=== PATIENT | male | born 1950 | race Caucasian/White ===

== ENCOUNTER → 2020-12-02 09:16 | Outpatient (CLI) | payer MEDICARE, OTHER, SELFPAY ==
[2020-12-02 19:02] LABS: Add Manual Diff / Slide Review NO; Basophils Absolute Auto 0 /uL (0-100); Basophils Percent Auto 0.4 % (0-2); Eosinophils Absolute Auto 200 /uL (0-450); Eosinophils Percent Auto 3.1 % (2-4); Hemoglobin 15.5 g/dL (13.5-17.5); Lymphocytes Absolute Auto 1100 /uL (1100-4500); Lymphocytes Percent Auto 20.7 % (25-40); Mean Corpuscular HGB Conc 32.9 % (30-36); Mean Corpuscular Hemoglobin 29.8 PG (26-34); Mean Corpuscular Volume 90.5 fL (80-100); Monocytes Absolute Auto 500 /uL (0-900); Monocytes Percent Auto 9.5 % (3-14); Neutrophils Absolute Auto 3400 /uL (1500-7000); Neutrophils Percent Auto 66.3 % (50-75); Platelet Count 214 X10^3/uL (150-400); Red Cell Distribution Width 14.3 % (11.6-14.8); White Blood Cell Count 5.1 X10^3/uL (4.5-11.0)
[2020-12-02 19:14] LABS: Alanine Aminotransferase 25 IU/L (<50); Albumin Globulin Ratio 1.5 (1.0-2.8); Alkaline Phosphatase 57 U/L (38-126); Aspartate Aminotransferase 30 IU/L (17-59); Bilirubin Total 0.4 mg/dL (0.2-1.3); Blood Urea Nitrogen 12 mg/dL (9-20); Calcium 9.2 mg/dL (8.4-10.2); Carbon Dioxide 30 mmol/L (22-32); Chloride 103 mmol/L (98-107); Estimated Glomerular Filt Rate > 60.0 mL/min (>60); Globulin 2.6 g/dL (1.7-4.1); Glucose 102 mg/dL (80-110); HEMOLYSIS < 15 (0-50); Potassium 4.4 mmol/L (3.4-5.1); Sodium 140 mmol/L (137-145); Total Protein 6.6 g/dL (6.3-8.2)
[2020-12-02 19:29] LABS: Free T3, Triiodothyronine Free 3.46 pg/mL (2.77-5.27); Free T4, Direct Thyroxine 1.71 ng/dL (0.78-2.19)
[2020-12-02 23:51] LABS: Thyroid Stimulating Hormone 0.149 uIU/mL (0.47-4.68)
== END ==
PROVIDERS: PCP Family Medicine; Visit Provider Family Medicine
DX: E89.0 Postprocedural hypothyroidism (principal); M25.50 Pain in unspecified joint; N52.9 Male erectile dysfunction, unspecified
CPT/HCPCS: 80053; 84439; 84443; 84481; 85025

== ENCOUNTER → 2021-02-02 08:58 | Outpatient (CLI) | payer MEDICARE, OTHER, SELFPAY ==
[2021-02-02 20:28] LABS: TSH w/ Reflex to FT4 2.89 uIU/mL (0.47-4.68)
== END ==
PROVIDERS: PCP Family Medicine; Visit Provider Family Medicine
DX: E89.0 Postprocedural hypothyroidism (principal)
CPT/HCPCS: 84443

== ENCOUNTER → 2021-08-01 12:43 | Outpatient (CLI) | payer MEDICARE, OTHER, SELFPAY ==
[2021-08-01 19:56] LABS: TSH w/ Reflex to FT4 2.79 uIU/mL (0.47-4.68)
== END ==
PROVIDERS: PCP Family Medicine; Referring Provider Family Medicine; Visit Provider Family Medicine
DX: E89.0 Postprocedural hypothyroidism (principal)
CPT/HCPCS: 84443

== ENCOUNTER 2021-10-23 14:01 | Emergency (ER) | payer MEDICARE, OTHER, SELFPAY ==
[2021-10-23] VITALS (7 sets, daily range): BP systolic 122–180; BP diastolic 72–99; PULSE 61–70; RESP 15–22; TEMP 36.6; O2SAT 95–97; BMI 25.7
--- NOTE | 2021-10-23 14:20 | DI.RAD.S_ITS ---
PROCEDURE: XR CHEST 1V INDICATIONS: altered mental status TECHNIQUE: One view of the chest was acquired. COMPARISON: None. FINDINGS: Surgical changes and devices: None. Lungs and pleura: Lungs are clear. No pleural effusions or pneumothorax. Mediastinum: Mediastinal contours appear normal. Heart size is normal. Bones and chest wall: No suspicious bony lesions. Overlying soft tissues appear unremarkable. IMPRESSION: No acute cardiopulmonary disease. Dictated by: Meghann Alexandre M.D. on 10/23/2021 at 14:37 Approved by: Meghann Alexandre M.D. on 10/23/2021 at 14:39
--- NOTE | 2021-10-23 14:21 | DI.CT.S_ITS ---
PROCEDURE: CT HEAD/BRAIN WO CON INDICATIONS: altered mental status TECHNIQUE: Noncontrast 4.5 mm thick angled axial sections acquired from the foramen magnum to the vertex, with coronal and sagittal reformats. For radiation dose reduction, the following was used: automated exposure control, adjustment of mA and/or kV according to patient size. COMPARISON: None. FINDINGS: Image quality: Excellent. CSF spaces: Basal cisterns are patent. No extra-axial fluid collections. The ventricles are symmetric in size and shape. Brain: No intracranial bleeds or masses. There is cerebral volume loss for age, with resultant ventricular and sulcal prominence. There are periventricular and deep white matter chronic small vessel ischemic changes. There is intracranial internal carotid artery atherosclerosis. Skull and face: Calvarium and visualized facial bones appear intact, without suspicious lesions. Sinuses: Visualized sinuses and mastoids are clear. IMPRESSION: 1. No acute intracranial abnormalities. Dictated by: Meghann Alexandre M.D. on 10/23/2021 at 14:39 Approved by: Meghann Alexandre M.D. on 10/23/2021 at 14:44
[2021-10-23 14:31] LABS: Add Manual Diff / Slide Review NO; Basophils Absolute Auto 0 /uL (0-100); Basophils Percent Auto 0.5 % (0-2); Eosinophils Absolute Auto 100 /uL (0-450); Eosinophils Percent Auto 1.4 % (2-4); Hematocrit 47.4 % (41-53); Hemoglobin 15.9 g/dL (13.5-17.5); Lymphocytes Absolute Auto 1200 /uL (1100-4500); Mean Corpuscular HGB Conc 33.5 % (30-36); Mean Corpuscular Hemoglobin 30.2 PG (26-34); Mean Corpuscular Volume 90.1 fL (80-100); Monocytes Absolute Auto 600 /uL (0-900); Monocytes Percent Auto 7.5 % (3-14); Neutrophils Absolute Auto 5700 /uL (1500-7000); Neutrophils Percent Auto 74.6 % (50-75); Platelet Count 228 X10^3/uL (150-400); Red Blood Cell Count 5.27 X10^6/uL (4.5-5.9); Red Cell Distribution Width 14.5 % (11.6-14.8); White Blood Cell Count 7.7 X10^3/uL (4.5-11.0)
--- NOTE | 2021-10-23 14:45 | ED_ITS ---
HPI - General Adult General Chief complaint: Altered Mental Status Stated complaint: Confussion,Nausea,Headache, Sent from [facility] Time Seen by Provider: 10/23/21 14:29 Source: patient and family Mode of arrival: Ambulatory Limitations: no limitations History of Present Illness HPI narrative: Patient is a 71-year-old male. Has a history of hypothyroid. Is on medication for this. His last dose adjustment was approximately 6 months ago. He is here for evaluation for headaches he has been having also some confusion and word- finding issues. All of his symptoms seem to have started approximately 48 hours ago. He was eating at a restaurant to the timing. He started having some abdominal discomfort. Generally not feeling very well. He tried to use the bathroom at the restaurant however has not had any diarrhea nor constipation or nausea and vomiting. No fevers. States since that time his also developed a headache on the right side just above his right eye. He describes it as sharp. He is currently having the headache but it certainly is not as bad as what has been in the past. Does seem to get worse when he bends over. There has been times in the past 48 hours where he has been symptom-free. He also states in the past 48 hours there been times where he has had issues expressing when he is trying to say. He states he yesterday his son told him that he did not know what he was trying to say. The patient admitted that he was having word-finding issues. He knew what he wanted to say but just could not get the words out. That apparently happened again today. He also states that he has had some shaking in his right hand and difficulty with writing things down and remembering things but this is been going on for the past 6 months. No chest pain. No shortness of breath. No vision changes. He was at the eye doctor just prior to this emergency department visit. This was a scheduled visit. He did have dilation of his eyes. He was told that he had some cataracts although no other abnormal findings. He did discuss his headaches that he was having with the eye doctor and the eye doctor told him that his headaches were not related to his eyes. No sinus congestion. He does have ringing in his ears but this is not new. No sore throat. No balance issues. No weakness in his upper lower extremities. No skin rashes. No urinary symptoms. No trauma. Related Data Home Medications Medication Instructions Recorded Confirmed ciclopirox 8 % topical solution 1 applic TOPICAL BEDTIME 11/29/20 12/20/20 sildenafil (pulm.hypertension) 20 20 mg PO .PRN tab 11/29/20 12/20/20 mg tablet triamcinolone acetonide 0.05 % 1 applic TOPICAL BID 11/29/20 12/20/20 topical ointment levothyroxine 175 mcg tablet mcg 10/23/21 Previous Rx's Medication Instructions Recorded levothyroxine 175 mcg tablet 175 mcg PO DAILY #90 tab 12/20/20 (Levoxyl) atorvastatin 40 mg tablet (Lipitor) 40 mg PO DAILY #30 tab 10/23/21 clopidogrel 75 mg tablet (Plavix) 75 mg PO DAILY 21 Days #21 tab 10/23/21 Allergies Allergy/AdvReac Type Severity Reaction Status Date / Time No Known Allergies Allergy Uncoded 10/23/21 14:28 Review of Systems Review of Systems ROS Unobtainable: All systems reviewed & are unremarkable except as noted in HPI and below Patient History Medical History Chronic back pain Fever Fractures Hearing loss (~2012) Hepatitis (~1972) Measles (~1953) Mumps Wears glasses Surgical History (Updated 02/01/21 @ 20:57 by Elba Lynn) Anesthesia History of nasal surgery History of thyroidectomy (2007) Family History (Updated 02/01/21 @ 21:00 by Elba Lynn) Father History of heart disease Prostate disease Mother No problems noted. Sister Arthritis Social History Smoking Status: Never smoker Smoking Status: Never smoker alcohol intake frequency: 0-2 drinks per day Substance Use Type: does not use Exam Initial Vital Signs Initial Vital Signs: Vital Signs Temperature 98 F 10/23/21 14:25 Pulse Rate 70 10/23/21 14:25 Respiratory Rate 17 10/23/21 14:25 Blood Pressure 180/99 H 10/23/21 14:25 Pulse Oximetry 97 10/23/21 14:25 Const General: cooperative, healthy appearing, comfortable, well developed, well groomed, No acute distress and No anxious HENMT Head: normal to inspection and normocephalic Ears: TM's normal bilaterally Face and sinus: normal facial exam Mouth: oral mucosae normal Teeth and gingiva: dentition normal Throat: posterior oropharynx normal Eyes EOM: EOM intact bilaterally Other: Hives are dilated at 8 mm and are minimally reactive but he did have dilation of his eyes at the eye doctor just prior to visit. Chest Chest: normal inspection of the chest Resp Effort & Inspection: normal respiratory effort Auscultation: clear to auscultation bilaterally Cardio Rate: regular rate Rhythm: regular rhythm GI Inspection: normal to inspection Palpation: soft Skin General: no rashes or lesions noted Neuro General: patient alert, patient awake, patient oriented x3, moves all extremities and no meningeal signs Cranial Nerves: CN's II-XI intact bilaterally Cognition: normal cognition Gait: normal gait Motor: muscle tone normal throughout Sensory Exam: no sensory deficits noted Other: Patient does have normal speech. But is obviously having some difficulty expressing what he is saying. Extrem General: normal to inspection and capillary refill normal Psych Appearance: grossly normal and well kempt Course Orders Ordered: ED Orders 10/23/21 14:20 XR chest 1V Stat Acetaminophen Stat Ammonia (NH3) Stat COVID19 -Nasal swab/Pre-Proc Stat Complete Blood Count AUTO DIFF Stat Comprehensive Metabolic Panel Stat Ethanol (ETOH) Stat Lactate (Lactic Acid) Stat Lipase Stat Procalcitonin Stat Salicylate Stat Thyroid Stimulating Hormone Stat Troponin & CK Cardiac Panel Stat EKG-12 Lead Stat 10/23/21 14:21 CT head/brain wo con Stat 10/23/21 14:53 MR stroke Stat Blood Culture Stat 10/23/21 15:00 Urine Drug Screen, Rapid Stat Discontinued Medications Aspirin (Aspirin Ec 81 Mg Tablet) 81 mg PO NOW ONE Stop: 10/23/21 17:00 Last Admin: 10/23/21 17:17 Dose: 81 mg Documented by: LISSETTE Atorvastatin Calcium (Atorvastatin 20 Mg Tablet) 40 mg PO NOW ONE Stop: 10/23/21 17:00 Last Admin: 10/23/21 17:17 Dose: 40 mg Documented by: LISSETTE Clopidogrel Bisulfate (Clopidogrel 75 Mg Tablet) 300 mg PO NOW ONE Stop: 10/23/21 17:00 Last Admin: 10/23/21 17:17 Dose: 300 mg Documented by: LISSETTE Sodium Chloride (Normal Saline 0.9%) 1,000 mls @ 150 mls/hr IV CONT RANI Last Admin: 10/23/21 16:13 Dose: 150 mls/hr Documented by: LISSETTE Vital Signs Vital signs: Vital Signs - 8 hr 10/23/21 14:25 10/23/21 16:00 10/23/21 16:30 Temperature 98 F Pulse Rate 70 63 66 Respiratory Rate 17 16 22 Blood Pressure 180/99 H 124/77 122/72 Pulse Oximetry 97 96 95 10/23/21 16:56 10/23/21 17:00 10/23/21 17:30 Temperature Pulse Rate 64 62 61 Respiratory Rate 22 15 19 Blood Pressure 129/78 133/72 Pulse Oximetry 96 97 96 10/23/21 17:38 Temperature Pulse Rate 64 Respiratory Rate 20 Blood Pressure 155/80 H Pulse Oximetry 95 Medical Decision Making Lab Data Lab results reviewed: Yes I reviewed the patient's lab results. Result diagrams: 10/23/21 14:20 10/23/21 14:20 Labs: Lab Results 10/23/21 10/23/21 10/23/21 Range/Units 14:20 14:20 14:20 WBC 7.7 (4.5-11.0) X10^3/uL RBC 5.27 (4.5-5.9) X10^6/uL Hgb 15.9 (13.5-17.5) g/dL Hct 47.4 (41-53) % MCV 90.1 (80-100) fL MCH 30.2 (26-34) PG MCHC 33.5 (30-36) % RDW 14.5 (11.6-14.8) % Plt Count 228 (150-400) X10^3/uL Neut % (Auto) 74.6 (50-75) % Lymph % (Auto) 16.0 L (25-40) % [place] % (Auto) 7.5 (3-14) % Eos % (Auto) 1.4 L (2-4) % Baso % (Auto) 0.5 (0-2) % Neut # (Auto) 5700 (6984-1917) /uL Lymph # (Auto) 1200 (6595-4443) /uL [place] # (Auto) 600 (0-900) /uL Eos # (Auto) 100 (0-450) /uL Baso # (Auto) 0 (0-100) /uL Sodium 139 (137-145) mmol/L Potassium 3.8 (3.4-5.1) mmol/L Chloride 103 (98-107) mmol/L Carbon Dioxide 28 (22-32) mmol/L BUN 13 (9-20) mg/dL Creatinine 0.96 (0.66-1.25) mg/dL Estimated GFR > 60.0 (>60) mL/min BUN/Creatinine Ratio 13.5 (6-22) Glucose 125 H (80-110) mg/dL Lactate (0.7-2.1) mmol/L Calcium 8.9 (8.4-10.2) mg/dL Total Bilirubin 0.7 (0.2-1.3) mg/dL AST 39 (17-59) IU/L ALT 25 (<50) IU/L Alkaline Phosphatase 59 (38-126) U/L Ammonia < 9 L (9-30) umol/L Total Creatine Kinase (55-170) U/L CK-MB (CK-2) (<2.37) ng/mL CK-MB (CK-2) Rel Index (1.5-5.0) % Troponin I (0.01-0.034) ng/mL Total Protein 7.6 (6.3-8.2) g/dL Albumin 4.6 (3.5-5.0) g/dL Globulin 3.0 (1.7-4.1) g/dL Albumin/Globulin Ratio 1.5 (1.0-2.8) Lipase (23-300) U/L Procalcitonin (<0.5) ng/mL TSH (0.47-4.68) uIU/mL Salicylates (<20) mg/dL U Opiates 300ng/mL cut (Negative) Ur Oxycodone Screen (Negative) Urine Methadone Screen (Negative) Acetaminophen (10-30) ug/mL Ur Barbiturates Screen (Negative) U Tricyclic Antidepress (Negative) Ur Phencyclidine Scrn (Negative) Ur Amphetamines Screen (Negative) U Methamphetamines Scrn (Negative) Ur MDMA Scrn (Ecstasy) (Negative) U Benzodiazepines Scrn (Negative) Urine Cocaine Screen (Negative) U Marijuana (THC) Screen (Negative) Ethyl Alcohol ( - 10) mg/dL SARS-CoV-2 (PCR) (Negative) 03/10/23/21 10/23/21 Range/Units 14:20 14:20 14:20 WBC (4.5-11.0) X10^3/uL RBC (4.5-5.9) X10^6/uL Hgb (13.5-17.5) g/dL Hct (41-53) % MCV (80-100) fL MCH (26-34) PG MCHC (30-36) % RDW (11.6-14.8) % Plt Count (150-400) X10^3/uL Neut % (Auto) (50-75) % Lymph % (Auto) (25-40) % [place] % (Auto) (3-14) % Eos % (Auto) (2-4) % Baso % (Auto) (0-2) % Neut # (Auto) (9170-2936) /uL Lymph # (Auto) (9890-3391) /uL [place] # (Auto) (0-900) /uL Eos # (Auto) (0-450) /uL Baso # (Auto) (0-100) /uL Sodium (137-145) mmol/L Potassium (3.4-5.1) mmol/L Chloride (98-107) mmol/L Carbon Dioxide (22-32) mmol/L BUN (9-20) mg/dL Creatinine (0.66-1.25) mg/dL Estimated GFR (>60) mL/min BUN/Creatinine Ratio (6-22) Glucose (80-110) mg/dL Lactate 0.8 (0.7-2.1) mmol/L Calcium (8.4-10.2) mg/dL Total Bilirubin (0.2-1.3) mg/dL AST (17-59) IU/L ALT (<50) IU/L Alkaline Phosphatase (38-126) U/L Ammonia (9-30) umol/L Total Creatine Kinase 351 H (55-170) U/L CK-MB (CK-2) 2.88 H (<2.37) ng/mL CK-MB (CK-2) Rel Index 0.8 L (1.5-5.0) % Troponin I < 0.012 (0.01-0.034) ng/mL Total Protein (6.3-8.2) g/dL Albumin (3.5-5.0) g/dL Globulin (1.7-4.1) g/dL Albumin/Globulin Ratio (1.0-2.8) Lipase (23-300) U/L Procalcitonin (<0.5) ng/mL TSH (0.47-4.68) uIU/mL Salicylates (<20) mg/dL U Opiates 300ng/mL cut (Negative) Ur Oxycodone Screen (Negative) Urine Methadone Screen (Negative) Acetaminophen (10-30) ug/mL Ur Barbiturates Screen (Negative) U Tricyclic Antidepress (Negative) Ur Phencyclidine Scrn (Negative) Ur Amphetamines Screen (Negative) U Methamphetamines Scrn (Negative) Ur MDMA Scrn (Ecstasy) (Negative) U Benzodiazepines Scrn (Negative) Urine Cocaine Screen (Negative) U Marijuana (THC) Screen (Negative) Ethyl Alcohol ( - 10) mg/dL SARS-CoV-2 (PCR) Negative (Negative) 10/23/21 10/23/21 10/23/21 Range/Units 14:20 14:20 14:20 WBC (4.5-11.0) X10^3/uL RBC (4.5-5.9) X10^6/uL Hgb (13.5-17.5) g/dL Hct (41-53) % MCV (80-100) fL MCH (26-34) PG MCHC (30-36) % RDW (11.6-14.8) % Plt Count (150-400) X10^3/uL Neut % (Auto) (50-75) % Lymph % (Auto) (25-40) % [place] % (Auto) (3-14) % Eos % (Auto) (2-4) % Baso % (Auto) (0-2) % Neut # (Auto) (5986-0370) /uL Lymph # (Auto) (4383-4166) /uL [place] # (Auto) (0-900) /uL Eos # (Auto) (0-450) /uL Baso # (Auto) (0-100) /uL Sodium (137-145) mmol/L Potassium (3.4-5.1) mmol/L Chloride (98-107) mmol/L Carbon Dioxide (22-32) mmol/L BUN (9-20) mg/dL Creatinine (0.66-1.25) mg/dL Estimated GFR (>60) mL/min BUN/Creatinine Ratio (6-22) Glucose (80-110) mg/dL Lactate (0.7-2.1) mmol/L Calcium (8.4-10.2) mg/dL Total Bilirubin (0.2-1.3) mg/dL AST (17-59) IU/L ALT (<50) IU/L Alkaline Phosphatase (38-126) U/L Ammonia (9-30) umol/L Total Creatine Kinase (55-170) U/L CK-MB (CK-2) (<2.37) ng/mL CK-MB (CK-2) Rel Index (1.5-5.0) % Troponin I (0.01-0.034) ng/mL Total Protein (6.3-8.2) g/dL Albumin (3.5-5.0) g/dL Globulin (1.7-4.1) g/dL Albumin/Globulin Ratio (1.0-2.8) Lipase 65 (23-300) U/L Procalcitonin 0.03 (<0.5) ng/mL TSH 3.56 (0.47-4.68) uIU/mL Salicylates (<20) mg/dL U Opiates 300ng/mL cut (Negative) Ur Oxycodone Screen (Negative) Urine Methadone Screen (Negative) Acetaminophen (10-30) ug/mL Ur Barbiturates Screen (Negative) U Tricyclic Antidepress (Negative) Ur Phencyclidine Scrn (Negative) Ur Amphetamines Screen (Negative) U Methamphetamines Scrn (Negative) Ur MDMA Scrn (Ecstasy) (Negative) U Benzodiazepines Scrn (Negative) Urine Cocaine Screen (Negative) U Marijuana (THC) Screen (Negative) Ethyl Alcohol < 10 ( - 10) mg/dL SARS-CoV-2 (PCR) (Negative) 10/23/21 10/23/21 Range/Units 14:20 15:00 WBC (4.5-11.0) X10^3/uL RBC (4.5-5.9) X10^6/uL Hgb (13.5-17.5) g/dL Hct (41-53) % MCV (80-100) fL MCH (26-34) PG MCHC (30-36) % RDW (11.6-14.8) % Plt Count (150-400) X10^3/uL Neut % (Auto) (50-75) % Lymph % (Auto) (25-40) % [place] % (Auto) (3-14) % Eos % (Auto) (2-4) % Baso % (Auto) (0-2) % Neut # (Auto) (9851-1234) /uL Lymph # (Auto) (0816-7941) /uL [place] # (Auto) (0-900) /uL Eos # (Auto) (0-450) /uL Baso # (Auto) (0-100) /uL Sodium (137-145) mmol/L Potassium (3.4-5.1) mmol/L Chloride (98-107) mmol/L Carbon Dioxide (22-32) mmol/L BUN (9-20) mg/dL Creatinine (0.66-1.25) mg/dL Estimated GFR (>60) mL/min BUN/Creatinine Ratio (6-22) Glucose (80-110) mg/dL Lactate (0.7-2.1) mmol/L Calcium (8.4-10.2) mg/dL Total Bilirubin (0.2-1.3) mg/dL AST (17-59) IU/L ALT (<50) IU/L Alkaline Phosphatase (38-126) U/L Ammonia (9-30) umol/L Total Creatine Kinase (55-170) U/L CK-MB (CK-2) (<2.37) ng/mL CK-MB (CK-2) Rel Index (1.5-5.0) % Troponin I (0.01-0.034) ng/mL Total Protein (6.3-8.2) g/dL Albumin (3.5-5.0) g/dL Globulin (1.7-4.1) g/dL Albumin/Globulin Ratio (1.0-2.8) Lipase (23-300) U/L Procalcitonin (<0.5) ng/mL TSH (0.47-4.68) uIU/mL Salicylates < 1.0 (<20) mg/dL U Opiates 300ng/mL cut Negative (Negative) Ur Oxycodone Screen Negative (Negative) Urine Methadone Screen Negative (Negative) Acetaminophen < 10 (10-30) ug/mL Ur Barbiturates Screen Negative (Negative) U Tricyclic Antidepress Negative (Negative) Ur Phencyclidine Scrn Negative (Negative) Ur Amphetamines Screen Negative (Negative) U Methamphetamines Scrn Negative (Negative) Ur MDMA Scrn (Ecstasy) Negative (Negative) U Benzodiazepines Scrn Negative (Negative) Urine Cocaine Screen Negative (Negative) U Marijuana (THC) Screen Negative (Negative) Ethyl Alcohol ( - 10) mg/dL SARS-CoV-2 (PCR) (Negative) Urine Dip Bedside Urine Glucose Negative Bedside Urine Bilirubin - Negative Bedside Urine Ketone - Negative Urine Specific [place] 1.010 Bedside Urine Occult Blood - Negative Bedside Urine pH 6.0 Bedside Urine Protein - Negative Bedside Urine Urobilinogen - Negative Bedside Urine Nitrite - Negative Bedside Urine Leukocytes - Negative Esterase Point of care testing: Urine Dip Bedside Urine Glucose Negative Bedside Urine Bilirubin - Negative Bedside Urine Ketone - Negative Urine Specific [place] 1.010 Bedside Urine Occult Blood - Negative Bedside Urine pH 6.0 Bedside Urine Protein - Negative Bedside Urine Urobilinogen - Negative Bedside Urine Nitrite - Negative Bedside Urine Leukocytes - Negative Esterase Imaging Data Chest x-ray: Radiologist's Impression: [place] [address] XRay Report Signed Patient: Lennox López MR#: [id number] : 1950 Acct:[id number] Age/Sex: 71 / M Date of Service: 10/23/21 Loc: ED Accession Number: [id number] ?? Procedure: XR chest 1V Ordering Provider: Paco Dougherty D.O. PROCEDURE:? XR CHEST 1V ? INDICATIONS:? altered mental status ? TECHNIQUE:? One view of the chest was acquired.? ? COMPARISON:? None. ? FINDINGS:? ? Surgical changes and devices:? None.? ? Lungs and pleura:? Lungs are clear.? No pleural effusions or pneumothorax.? ? Mediastinum:? Mediastinal contours appear normal.? Heart size is normal.? ? Bones and chest wall:? No suspicious bony lesions.? Overlying soft tissues appear unremarkable.? ? IMPRESSION:? No acute cardiopulmonary disease. ? ? ? Dictated by: Meghann Alexandre M.D. on 10/23/2021 at 14:37 ? ? Approved by: Meghann Alexandre M.D. on 10/23/2021 at 14:39?? CT scan - head: Radiologist's Impression: [address] [address] [address] Scan Report Signed Patient: Lennox López MR#: [id number] : 1950 Acct:[id number] Age/Sex: 71 / M Date of Service: 10/23/21 Loc: ED Accession Number: [id number] ?? Procedure: CT head/brain wo con Ordering Provider: Paco Dougherty D.O. PROCEDURE:? CT HEAD/BRAIN WO CON ? INDICATIONS:? altered mental status ? TECHNIQUE:? Noncontrast 4.5 mm thick angled axial sections acquired from the foramen magnum to the vertex, with coronal and sagittal reformats.? For radiation dose reduction, the following was used:? automated exposure control, adjustment of mA and/or kV according to patient size.? ? COMPARISON:? None. ? FINDINGS:? Image quality:? Excellent.? ? CSF spaces:? Basal cisterns are patent.? No extra-axial fluid collections.? The ventricles are symmetric in size and shape.? ? Brain:? No intracranial bleeds or masses.? There is cerebral volume loss for age, with resultant ventricular and sulcal prominence.? There are periventricular and deep white matter chronic small vessel ischemic changes.? There is intracranial internal carotid artery atherosclerosis.? ? Skull and face:? Calvarium and visualized facial bones appear intact, without suspicious lesions.? ? Sinuses:? Visualized sinuses and mastoids are clear.? ? IMPRESSION:? ? 1. No acute intracranial abnormalities. ? ? ? Dictated by: Meghann Alexandre M.D. on 10/23/2021 at 14:39 ? ? Approved by: Meghann Alexandre M.D. on 10/23/2021 at 14:44? ECG Data Attestation: I personally reviewed and interpreted this ECG as follows: Interpretation: Sinus rhythm Ventricular rate is 65 Sinus arrhythmia Normal axis Normal QRS Normal QTC No ST T wave changes MDM Narrative Medical decision making narrative: Patient had a normal neurologic exam here in the ER. He did seem to have to think about the words that he was saying but was certainly not slurring any words and was very appropriate with his answers. He is not having any sensory deficits. No motor deficits. His head CT was unremarkable. MRI unremarkable as well. Was initially hypertensive upon arrival but this improved without anti hypertensive medicines here in the ER. Toxicologic workup is negative. Patient had no ectopy here on the monitor. No history of atrial fibrillation. Given his clinical presentation do feel the need to treat him is a TIA. Was given aspirin, Plavix and Lipitor here in the ER and was sent home with prescription for these medications. Since we were able to obtain an MRI here in the emergency department patient does not require admission to the hospital. He does require further workup to include echocardiogram and Holter monitor but this can be ordered as an outpatient. Had a discussion with him and his regarding the symptoms. Have him follow-up with his primary provider. He was given strict return precautions. He expressed understanding and agreement. Discharge Plan Departure Patient Disposition: Home Clinical Impression: Brain TIA, Dysarthria Instructions: DI for Transient Ischemic Attack Activity Restrictions/Additional Instructions: I recommend that you continue to take all of your medications as directed. We are going to start you on 3 different medications that I would recommend that you start taking as directed. Contact your primary doctor for follow-up and discuss further workup to include indications for a Holter monitor/echocardiogram or potential Neurology referral. Return to the emergency department for any new or worsening symptoms. Prescriptions: New clopidogrel [Plavix] 75 mg tablet 75 mg PO DAILY 21 Days Qty: 21 0RF atorvastatin [Lipitor] 40 mg tablet 40 mg PO DAILY Qty: 30 0RF No Action levothyroxine 175 mcg tablet 0RF ciclopirox 8 % solution 1 applic topical BEDTIME 0RF triamcinolone acetonide 0.05 % ointment 1 applic topical BID 0RF sildenafil (pulm.hypertension) 20 mg tablet 20 mg PO .PRN 0RF Rx Instructions: TAKE 1-5 TABS BY MOUTH DAILY NEEDED COITUS administer doses at least 4-6 hours apart levothyroxine [Levoxyl] 175 mcg tablet 175 mcg PO DAILY Qty: 90 3RF Referrals: Jah Lara MD [Primary Care Provider] -
--- NOTE | 2021-10-23 14:53 | DI.MRI.S_ITS ---
PROCEDURE: MR STROKE Pre- and post-contrast brain MRI, non-contrast brain MR angiogram, pre- and postcontrast neck MR angiogram INDICATIONS: eval for stroke TECHNIQUE: Brain: Noncontrast axial T1 spin echo, axial T2 fast spin echo, sagittal and axial FLAIR, coronal T2 fast spin echo, axial gradient echo, axial diffusion and ADC through the brain. After the administration of contrast, axial 3D VIBE of the cranial vasculature and brain. Brain MRA: Non-contrast 3-D time of flight MR angiogram, with multiple imrnpnl-jzhpbouml-bczmwxquig (MIP) reformats performed. Neck MRA: Axial and sagittal TruFISP through the neck. Coronal dynamic MR angiogram during administration of contrast in the arterial and venous phases, with 3-dimenstional bhflzbg-numhoocwz-feeogwtjhy (MIP) reformats constructed from subtraction images. COMPARISON: [facility], CT, CT HEAD/BRAIN WO CON, 10/23/2021, 14:30. FINDINGS: Image quality: Excellent. BRAIN: CSF spaces: Ventricles are normal in size and shape. Basal cisterns are patent. No extra-axial fluid collections. Brain: No intracranial bleeds or mass effects. Moderate cerebral volume loss. There are multiple foci of T2 hyperintensity in periventricular white matter adjacent to corpus callosum. Diffusion weighted images show a small focus of hyper intensity in the lower brainstem or upper cervical cord. There is no definitive correlate on ADC images. The finding could be caused by artifact. Normal intravascular flow voids are present. No abnormal intracranial enhancement. Skull and face: Calvarial marrow signal is normal. Orbits appear normal. Sinuses: Sinuses and mastoids are clear. BRAIN MR ANGIOGRAM: Anterior circulation: Intracranial internal carotid arteries are normal in size and enhancement. The A1 segment of the left anterior cerebral artery is absent, likely an anatomic variant. The right A1 segment is prominent. The flow within the paired anterior cerebral arteries is otherwise normal and symmetric. The flow within the middle cerebral arteries is normal and symmetric. The anterior communicating artery is seen. No stenoses, occlusions, or aneurysms. Posterior circulation: Dominant left vertebral artery which demonstrate normal caliber, and continues to form a normal appearing basilar artery. 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 The flow within the posterior cerebral arteries is normal and symmetric. No stenoses, occlusions, or aneurysms. NECK MR ANGIOGRAM: Carotids: Great vessels demonstrate a conventional anatomy as they arise from the aortic arch. The origins of the common carotid arteries appear patent. The calibers and courses of both common carotid arteries are normal. The bifurcation regions appear normal bilaterally. The internal carotid arteries demonstrate normal course and caliber. Posterior circulation: Dominant left vertebral artery. The origins of the vertebral arteries appear patent. More superior portions of the left vertebral artery demonstrates normal course and caliber, and continues to form a normal appearing basilar artery. 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 Miscellaneous: Subclavian arteries appear patent. Pre-contrast images through the neck show no soft tissue abnormalities. IMPRESSION: BRAIN MRI: 1. There is a small focus of hyper intensity in the lower brainstem or upper cervical cord without definitive correlate on ADC images. This is most likely caused by an artifact. Please correlate with clinical symptoms. If clinically indicated, follow-up imaging should be obtained. 2. Elsewhere, no acute intracranial abnormalities. 3. Moderate cerebral volume loss. 4. There are multiple foci of T2 hyperintensity in periventricular white matter, most likely secondary to chronic microvascular ischemic changes. A differential diagnosis is a demyelinating process such as multiple sclerosis. BRAIN MR ANGIOGRAM: 1. Absence of the A1 segment of left anterior cerebral artery, likely an anatomic variant. There is a prominent right A1 segment. 2. Dominant left vertebral artery. 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 3. No high-grade stenosis or occlusion in anterior or posterior circulations. NECK MR ANGIOGRAM: 1. No hemodynamic significant stenosis in cervical carotid arteries or vertebral arteries bilaterally. Dictated by: Meghann Alexandre M.D. on 10/23/2021 at 16:05 Approved by: Meghnan Alexandre M.D. on 10/23/2021 at 16:38
[2021-10-23 14:55] LABS: COVID19 -Nasal RAPID Negative (Negative)
[2021-10-23 14:56] LABS: Lactate (Lactic Acid) 0.8 mmol/L (0.7-2.1)
[2021-10-23 14:57] LABS: Creatine Kinase 351 U/L (55-170); Ethanol (ETOH) < 10 mg/dL; Lipase 65 U/L (23-300)
[2021-10-23 14:58] LABS: Acetaminophen < 10 ug/mL (10-30); Ammonia (NH3) < 9 umol/L (9-30); Salicylate < 1.0 mg/dL (<20)
[2021-10-23 15:09] LABS: Troponin I < 0.012 ng/mL (0.01-0.034)
[2021-10-23 15:15] LABS: Procalcitonin 0.03 ng/mL (<0.5)
[2021-10-23 15:26] LABS: UR Morphine/Opiate cutoff 300 Negative (Negative); Ur Creatinine Normal (Normal); Ur Specific Gravity Normal (Normal); Urine Amphetamines Negative (Negative); Urine Barbiturates Negative (Negative); Urine Benzodiazepines Negative (Negative); Urine Cocaine Negative (Negative); Urine MDMA Negative (Negative); Urine Methadone Negative (Negative); Urine Methamphetamines Negative (Negative); Urine Oxycodone Negative (Negative); Urine Phencyclidine Negative (Negative); Urine Tetrahydrocannabinol Negative (Negative); Urine Tricyclic Antidepressant Negative (Negative); Urine pH Normal (Normal)
[2021-10-23 15:26] LABS: Alanine Aminotransferase 25 IU/L (<50); Albumin 4.6 g/dL (3.5-5.0); Albumin Globulin Ratio 1.5 (1.0-2.8); Alkaline Phosphatase 59 U/L (38-126); Aspartate Aminotransferase 39 IU/L (17-59); BUN Creatinine Ratio 13.5 (6-22); Bilirubin Total 0.7 mg/dL (0.2-1.3); Blood Urea Nitrogen 13 mg/dL (9-20); Calcium 8.9 mg/dL (8.4-10.2); Carbon Dioxide 28 mmol/L (22-32); Chloride 103 mmol/L (98-107); Estimated Glomerular Filt Rate > 60.0 mL/min (>60); Glucose 125 mg/dL (80-110); Potassium 3.8 mmol/L (3.4-5.1); Sodium 139 mmol/L (137-145); Total Protein 7.6 g/dL (6.3-8.2)
[2021-10-23 15:29] LABS: Thyroid Stimulating Hormone 3.56 uIU/mL (0.47-4.68)
[2021-10-23 16:12] LABS: HEMOLYSIS < 15 (0-50)
[2021-10-23] MEDS: SODIUM CHLORIDE 0.9% 1,000 ML 150 ML IV (16:13)
[2021-10-23 16:17] LABS: CKMB % Relative Index 0.8 % (1.5-5.0); Creatine Kinase MB 2.88 ng/mL (<2.37)
[2021-10-23] MEDS: ASPIRIN EC 81 MG TABLET PO (17:17)
[2021-10-23] MEDS: ATORVASTATIN 20 MG TABLET 40 MG PO (17:17)
[2021-10-23] MEDS: CLOPIDOGREL 75 MG TABLET 300 MG PO (17:17)
== END 2021-10-23 17:45 | disposition home or self-care (01) ==
PROVIDERS: Emergency Provider Emergency Medicine; PCP Family Medicine
DX: G45.9 Transient cerebral ischemic attack, unspecified (principal); R47.1 Dysarthria and anarthria; Z20.822 Contact with and (suspected) exposure to COVID-19
CPT/HCPCS: 36415; 70450; 70548; 70553; 71045; 80053; 80305; 80320; 80329; 81003; 82140; 82550; 82553; 83605; 83690; 84145; 84443; 84484; 85025; 87040; 87635; 93005; 99284; 99285; C9803; G0480

== ENCOUNTER → 2021-10-26 11:22 | Outpatient (CLI) | payer MEDICARE, OTHER, SELFPAY ==
--- NOTE | 2021-11-16 15:39 | PM.CARDMON.1 ---
[employer] Report Referral & Results Date Patient Seen: 10/26/21 Requesting provider: Radha Becker Indication: Transient cerebral ischemia Duration of monitoring (days): 14 Diary information: There were 9 patient triggered events and 1 patient diary entry Patient triggered events were variably associated with (within 45 seconds) sinus rhythm, PACs and PVCs Patient diary event was associated with sinus rhythm and PVC Data: Minimum heart rate identified was 41 beats per minute at 04:08 on 10/31/2021 Maximum sinus heart rate was 130 beats per minute at 10:40 on 10/28/2021 Maximum overall heart rate was 139 beats per minute at 19:57 on 11/08/2021 during a run of SVT Approximately 1.5% of identified beats were supraventricular ectopic in origin which would classify them as occasional Less than 1% of identified beats were ventricular ectopic in origin which would classify them as rare There were 25 runs of SVT with the fastest being an 8 beat run at the above 139 beats per minute, the longest lasting 9 beats at a rate of 110 beats per minute which would suggest more atrial tachycardia than true SVT No atrial fibrillation or pauses of 3 seconds or longer were identified on this study Impression: 14 day ekg monitor demonstrating occasional PACs and very rare very brief runs of SVT as above Clinical correlation suggested
== END ==
PROVIDERS: PCP Family Medicine; Referring Provider Physician Assistant; Visit Provider Physician Assistant
DX: G45.9 Transient cerebral ischemic attack, unspecified (principal); R47.1 Dysarthria and anarthria; R20.2 Paresthesia of skin
CPT/HCPCS: 93246; 93248

== ENCOUNTER → 2021-12-14 08:06 | Outpatient (CLI) | payer MEDICARE, OTHER, SELFPAY ==
[2021-12-14 18:44] LABS: Cholesterol 172 mg/dL (140-199); HDL Cholesterol 41 mg/dL (40-60); LDL Cholesterol Calculated 113 mg/dL (<100); Triglycerides 91 mg/dL (35-150)
== END ==
PROVIDERS: PCP Family Medicine; Visit Provider Family Medicine
DX: E89.0 Postprocedural hypothyroidism (principal); Z13.220 Encounter for screening for lipoid disorders
CPT/HCPCS: 80061

== ENCOUNTER → 2022-01-22 09:14 | Outpatient (CLI) | payer MEDICARE, OTHER, SELFPAY ==
[2022-01-22 19:42] LABS: Hemoglobin A1C% w Est Avg Glu 5.5 % (4.0-6.0)
[2022-01-22 20:13] LABS: Vitamin B12 314 pg/mL (239-931)
== END ==
PROVIDERS: PCP Family Medicine; Visit Provider Family Medicine
DX: R73.9 Hyperglycemia, unspecified (principal); R41.3 Other amnesia; R47.01 Aphasia
CPT/HCPCS: 82607; 83036

== ENCOUNTER → 2022-08-28 13:33 | Outpatient (CLI) | payer MEDICARE, OTHER, SELFPAY ==
[2022-08-28 18:55] LABS: Add Manual Diff / Slide Review NO; Basophils Absolute Auto 0 /uL (0-100); Basophils Percent Auto 0.7 % (0-2); Eosinophils Absolute Auto 200 /uL (0-450); Eosinophils Percent Auto 2.7 % (2-4); Hematocrit 46.6 % (41-53); Hemoglobin 15.7 g/dL (13.5-17.5); Lymphocytes Absolute Auto 1400 /uL (1100-4500); Lymphocytes Percent Auto 23.1 % (25-40); Mean Corpuscular HGB Conc 33.6 % (30-36); Mean Corpuscular Hemoglobin 29.9 PG (26-34); Mean Corpuscular Volume 88.9 fL (80-100); Monocytes Absolute Auto 700 /uL (0-900); Monocytes Percent Auto 10.7 % (3-14); Neutrophils Absolute Auto 3800 /uL (1500-7000); Neutrophils Percent Auto 62.8 % (50-75); Platelet Count 241 X10^3/uL (150-400); Red Blood Cell Count 5.24 X10^6/uL (4.5-5.9); Red Cell Distribution Width 14.5 % (11.6-14.8); White Blood Cell Count 6.1 X10^3/uL (4.5-11.0)
[2022-08-28 19:22] LABS: Alanine Aminotransferase 24 IU/L (<50); Albumin 4.2 g/dL (3.5-5.0); Albumin Globulin Ratio 1.6 (1.0-2.8); Alkaline Phosphatase 58 U/L (38-126); Aspartate Aminotransferase 33 IU/L (17-59); BUN Creatinine Ratio 13.3 (6-22); Bilirubin Total 0.5 mg/dL (0.2-1.3); Bilirubin Unconjugated 0.3 mg/dL (0.0-1.1); Blood Urea Nitrogen 13 mg/dL (9-20); Calcium 8.7 mg/dL (8.4-10.2); Carbon Dioxide 33 mmol/L (22-32); Chloride 99 mmol/L (98-107); Estimated Glomerular Filt Rate > 60 mL/min (>60); Globulin 2.7 g/dL (1.7-4.1); Glucose 96 mg/dL (80-110); HEMOLYSIS < 15 (0-50); Potassium 4.3 mmol/L (3.4-5.1); Sodium 139 mmol/L (137-145); Total Protein 6.9 g/dL (6.3-8.2)
[2022-08-28 19:28] LABS: Free T4, Direct Thyroxine 1.17 ng/dL (0.78-2.19)
[2022-08-28 19:42] LABS: Thyroid Stimulating Hormone 3.99 uIU/mL (0.47-4.68)
== END ==
PROVIDERS: PCP Physician Assistant; Visit Provider Physician Assistant
DX: E89.0 Postprocedural hypothyroidism (principal); R94.8 Abnormal results of function studies of other organs and systems; Z79.899 Other long term (current) drug therapy; Z13.220 Encounter for screening for lipoid disorders
CPT/HCPCS: 80053; 80076; 84439; 84443; 85025

== ENCOUNTER → 2023-02-12 11:29 | Outpatient (CLI) | payer MEDICARE, OTHER, SELFPAY ==
[2023-02-12 20:19] LABS: Alanine Aminotransferase 28 IU/L (<50); Albumin 4.1 g/dL (3.5-5.0); Albumin Globulin Ratio 1.5 (1.0-2.8); Alkaline Phosphatase 52 U/L (38-126); Aspartate Aminotransferase 33 IU/L (17-59); BUN Creatinine Ratio 17.9 (6-22); Bilirubin Total 1.2 mg/dL (0.2-1.3); Blood Urea Nitrogen 17 mg/dL (9-20); Calcium 8.8 mg/dL (8.4-10.2); Carbon Dioxide 30 mmol/L (22-32); Chloride 101 mmol/L (98-107); Cholesterol 175 mg/dL (140-199); Estimated Glomerular Filt Rate > 60 mL/min (>60); Globulin 2.8 g/dL (1.7-4.1); Glucose 85 mg/dL (80-110); HDL Cholesterol 43 mg/dL (40-60); HEMOLYSIS < 15 (0-50); LDL Cholesterol Calculated 112 mg/dL (<100); Potassium 4.4 mmol/L (3.4-5.1); Sodium 138 mmol/L (137-145); Total Protein 6.9 g/dL (6.3-8.2); Triglycerides 98 mg/dL (35-150)
== END ==
PROVIDERS: PCP Physician Assistant; Visit Provider Physician Assistant
DX: Z79.899 Other long term (current) drug therapy (principal); E78.00 Pure hypercholesterolemia, unspecified
CPT/HCPCS: 80053; 80061

== ENCOUNTER → 2023-02-20 09:09 | Outpatient (CLI) | payer MEDICARE, OTHER, SELFPAY ==
--- NOTE | 2023-02-20 09:11 | DI.CT.S_ITS ---
PROCEDURE: CT ABDOMEN PELVIS W CON INDICATIONS: pre-op evaluation for likely hernia repair TECHNIQUE: After the administration of oral and intravenous contrast, axial sections were acquired from the lung bases to the pubic symphysis. Coronal and sagittal reformats were performed. For radiation dose reduction, the following was used: automated exposure control, adjustment of mA and/or kV according to patient size. COMPARISON:None. FINDINGS: Image quality: Excellent. Lung bases: Right lower lobe calcified granuloma. Heart: Normal in size. Coarse calcification of the proximal right coronary artery. ABDOMEN: Liver: Unremarkable. Gallbladder: Unremarkable. Biliary ducts: Unremarkable. Pancreas: Unremarkable. Spleen: Unremarkable. Adrenal Glands: Unremarkable. Kidneys and Ureters: Unremarkable. Left renal exophytic cyst which measures higher than water density, may represent proteinaceous or hemorrhagic cyst.. Stomach and Bowel: Stomach, small bowel loops, and colon are normal in caliber without mural thickening. Diverticulosis, primarily within the descending and sigmoid colon without evidence of diverticulitis Peritoneum: No abnormal intraperitoneal fluid. No free air. Ventral Wall: No hernia. Abdominal Nodes: No retroperitoneal or mesenteric adenopathy by size criteria. Vessels: Aorta and inferior vena cava are normal in size. Atherosclerotic vascular calcifications. PELVIS: Pelvic Organs: Unremarkable. Bladder: Unremarkable. Pelvic Nodes: No enlarged lymph nodes. Miscellaneous: Bilateral small inguinal hernias containing fat. Bones: Degenerative changes of the lumbar spine. No suspicious osseous lesions. IMPRESSION: 1. No acute intra-abdominal abnormalities. 2. Small bilateral inguinal hernias containing fat. 3. Diverticulosis CT evidence of acute diverticulitis. 4. Left renal exophytic cyst which demonstrates higher than water attenuation, may represent a proteinaceous or hemorrhagic cyst. Further evaluation with ultrasound can be obtained. Dictated by: Garett Wells M.D. on 02/20/2023 at 12:20 Approved by: Garett Wells M.D. on 02/20/2023 at 12:28
== END ==
PROVIDERS: PCP Physician Assistant; Referring Provider Physician Assistant; Visit Provider Physician Assistant
DX: K43.9 Ventral hernia without obstruction or gangrene (principal); K42.9 Umbilical hernia without obstruction or gangrene; K40.20 Bilateral inguinal hernia, without obstruction or gangrene, not specified as recurrent; K57.90 Diverticulosis of intestine, part unspecified, without perforation or abscess without bleeding; N28.1 Cyst of kidney, acquired
CPT/HCPCS: 74177; Q9967

== ENCOUNTER → 2023-06-29 10:38 | Outpatient (CLI) | payer MEDICARE, OTHER, SELFPAY ==
--- NOTE | 2023-06-29 10:39 | DI.MRI.S_ITS ---
PROCEDURE: MR HEAD/BRAIN WO/W CON INDICATIONS: visual changes and confusion TECHNIQUE: Noncontrast axial T1 spin echo, axial T2 fast spin echo, sagittal and axial FLAIR, coronal T2 fast spin echo, axial gradient echo, axial diffusion and ADC through the brain. After the administration of contrast, axial and coronal and sagittal 3D VIBE or T1 spin echo with fat saturation through the brain. COMPARISON: None. FINDINGS: Image quality: Excellent. CSF Spaces: Basal cisterns are patent. No extra-axial fluid collections. Ventricles are normal in size and shape. Brain: No midline shift. No intracranial bleeds or masses. No abnormal intracranial enhancement. The brainstem appears normal. Diffusion-weighted images demonstrate no acute ischemic insults. No chronic ischemic insults. Normal intravascular flow voids are present. Leukoaraiosis, commonly caused by small vessel ischemic disease. Skull and face: Calvarial marrow is normal in signal. Orbits appear normal. Sinuses: Air-fluid level in the left maxillary sinus. IMPRESSION: No acute intracranial pathology. Specifically, no foci of restricted diffusion within the occipital lobe or the optic nerve to suggest acute pathology. Moderate chronic small vessel ischemic disease for age. Acute left maxillary sinusitis. Dictated by: Elia Horne M.D. on 06/29/2023 at 11:34 Approved by: Elia Horne M.D. on 06/29/2023 at 11:38
== END ==
PROVIDERS: PCP Physician Assistant; Referring Provider Family Medicine; Visit Provider Family Medicine
DX: I67.81 Acute cerebrovascular insufficiency (principal); J01.00 Acute maxillary sinusitis, unspecified; R41.3 Other amnesia; R25.1 Tremor, unspecified; Z86.73 Personal history of transient ischemic attack (TIA), and cerebral infarction without residual deficits
CPT/HCPCS: 70553

== ENCOUNTER → 2023-10-22 09:30 | Outpatient (CLI) | payer MEDICARE, OTHER, SELFPAY ==
[2023-10-24 11:11] LABS: Fecal Immunochemical Test Negative (Negative)
== END ==
PROVIDERS: PCP Physician Assistant; Visit Provider Physician Assistant
DX: Z12.11 Encounter for screening for malignant neoplasm of colon (principal); Z11.59 Encounter for screening for other viral diseases
CPT/HCPCS: 82274

== ENCOUNTER → 2023-10-24 10:39 | Outpatient (CLI) | payer MEDICARE, OTHER, SELFPAY ==
[2023-10-24 20:40] LABS: Add Manual Diff / Slide Review NO; Basophils Absolute Auto 0 /uL (0-100); Basophils Percent Auto 0.5 % (0-2); Eosinophils Absolute Auto 100 /uL (0-450); Eosinophils Percent Auto 1.1 % (2-4); Hematocrit 47.8 % (41-53); Hemoglobin 15.7 g/dL (13.5-17.5); Lymphocytes Absolute Auto 1300 /uL (1100-4500); Lymphocytes Percent Auto 19.2 % (25-40); Mean Corpuscular HGB Conc 32.8 % (30-36); Mean Corpuscular Hemoglobin 29.7 PG (26-34); Mean Corpuscular Volume 90.7 fL (80-100); Monocytes Absolute Auto 500 /uL (0-900); Monocytes Percent Auto 7.4 % (3-14); Neutrophils Absolute Auto 4900 /uL (1500-7000); Neutrophils Percent Auto 71.8 % (50-75); Platelet Count 227 X10^3/uL (150-400); Red Blood Cell Count 5.28 X10^6/uL (4.5-5.9); Red Cell Distribution Width 14.4 % (11.6-14.8); White Blood Cell Count 6.8 X10^3/uL (4.5-11.0)
[2023-10-24 20:41] LABS: Alanine Aminotransferase 34 IU/L (<50); Albumin Globulin Ratio 1.4 (1.0-2.8); Alkaline Phosphatase 55 U/L (38-126); Aspartate Aminotransferase 38 IU/L (17-59); BUN Creatinine Ratio 18.3 (6-22); Blood Urea Nitrogen 15 mg/dL (9-20); Carbon Dioxide 28 mmol/L (22-32); Chloride 105 mmol/L (98-107); Cholesterol 117 mg/dL (140-199); Estimated Glomerular Filt Rate > 60 mL/min (>60); Globulin 2.8 g/dL (1.7-4.1); Glucose 94 mg/dL (80-110); HDL Cholesterol 48 mg/dL (40-60); HEMOLYSIS < 15 (0-50); LDL Cholesterol Calculated 56 mg/dL (<100); Potassium 4.2 mmol/L (3.4-5.1); Sodium 139 mmol/L (137-145); Total Protein 6.8 g/dL (6.3-8.2); Triglycerides 67 mg/dL (35-150)
[2023-10-24 21:07] LABS: TSH w/ Reflex to FT4 1.11 uIU/mL (0.47-4.68)
[2023-10-24 21:12] LABS: Prostate Specific Antigen Scrn 0.584 ng/mL (0.1-4.0)
[2023-10-25 05:47] LABS: Hep C Virus Ab w/Reflex Quant NEGATIVE s/c (NEGATIVE)
[2023-10-28 08:08] LABS: Cholesterol, Total 121 mg/dL (100-199); HDL-Cholesterol 54 mg/dL (>39); HDL-Particle (Total) 34.2 umol/L (>=30.5); LDL Particle 489 nmol/L (<1000); LDL Size 20.7 nm (>20.5); LDL-Cholsterol 53 mg/dL (0-99); LP-IR Score 27 (<=45); Small LDL- Particle 149 nmol/L (<=527); Triglycerides 69 mg/dL (0-149)
[2023-10-28 12:43] LABS: Lipoprotein (a) 31.8 nmol/L (<75.0)
== END ==
PROVIDERS: Internal Medicine Cardiovascular Disease; PCP Physician Assistant; Visit Provider Physician Assistant
DX: Z12.11 Encounter for screening for malignant neoplasm of colon (principal); E89.0 Postprocedural hypothyroidism; Z12.5 Encounter for screening for malignant neoplasm of prostate; R00.2 Palpitations; Z11.59 Encounter for screening for other viral diseases; E78.00 Pure hypercholesterolemia, unspecified; R94.8 Abnormal results of function studies of other organs and systems; E78.5 Hyperlipidemia, unspecified; I70.0 Atherosclerosis of aorta; G43.109 Migraine with aura, not intractable, without status migrainosus; R06.09 Other forms of dyspnea; R73.9 Hyperglycemia, unspecified; Z79.899 Other long term (current) drug therapy
CPT/HCPCS: 80053; 80061; 83695; 83704; 84443; 85025; 86803; G0103

== ENCOUNTER → 2023-12-19 11:09 | Outpatient (CLI) | payer MEDICARE, OTHER, SELFPAY | PROVIDERS: PCP Physician Assistant; Referring Provider Internal Medicine Cardiovascular Disease; Visit Provider Internal Medicine Cardiovascular Disease | DX: R00.2 Palpitations (principal); E78.5 Hyperlipidemia, unspecified; I70.90 Unspecified atherosclerosis; G43.109 Migraine with aura, not intractable, without status migrainosus; R06.09 Other forms of dyspnea | CPT/HCPCS: 36415; 80061; 83695; 83704 ==

== ENCOUNTER → 2024-12-30 09:06 | Outpatient (CLI) | payer MEDICARE, OTHER, SELFPAY ==
[2024-12-30 19:42] LABS: Alanine Aminotransferase 28 IU/L (<50); Albumin 4.4 g/dL (3.5-5.0); Albumin Globulin Ratio 2.1 (1.0-2.8); Alkaline Phosphatase 53 U/L (38-126); Aspartate Aminotransferase 33 IU/L (17-59); BUN Creatinine Ratio 15.9 (6-22); Bilirubin Total 0.8 mg/dL (0.2-1.3); Blood Urea Nitrogen 14 mg/dL (9-20); Calcium 9.4 mg/dL (8.4-10.2); Carbon Dioxide 29 mmol/L (22-32); Chloride 102 mmol/L (98-107); Cholesterol 133 mg/dL (140-199); Estimated Glomerular Filt Rate > 60 mL/min (>60); Globulin 2.1 g/dL (1.7-4.1); Glucose 97 mg/dL (70-99); HDL Cholesterol 45 mg/dL (40-60); HEMOLYSIS 16 (0-50); LDL Cholesterol Calculated 75 mg/dL (<100); Potassium 4.3 mmol/L (3.4-5.1); Sodium 139 mmol/L (137-145); Total Protein 6.5 g/dL (6.3-8.2); Triglycerides 65 mg/dL (35-150)
[2024-12-30 20:11] LABS: TSH w/ Reflex to FT4 0.27 uIU/mL (0.47-4.68)
[2024-12-30 20:13] LABS: Prostate Specific Antigen Scrn 0.618 ng/mL (0.1-4.0)
[2024-12-30 20:30] LABS: Vitamin B12 985 pg/mL (239-931)
[2024-12-30 20:54] LABS: Free T4, Direct Thyroxine 1.62 ng/dL (0.78-2.19)
== END ==
PROVIDERS: PCP Family Medicine; Visit Provider Physician Assistant
DX: Z13.6 Encounter for screening for cardiovascular disorders (principal); Z12.5 Encounter for screening for malignant neoplasm of prostate; E89.0 Postprocedural hypothyroidism; E53.8 Deficiency of other specified B group vitamins; R25.1 Tremor, unspecified; E78.2 Mixed hyperlipidemia
CPT/HCPCS: 80053; 80061; 82607; 84439; 84443; G0103

== ENCOUNTER → 2025-01-07 10:00 | Outpatient (CLI) | payer MEDICARE, OTHER, SELFPAY | PROVIDERS: PCP Family Medicine; Visit Provider Physician Assistant | DX: Z12.11 Encounter for screening for malignant neoplasm of colon (principal) | CPT/HCPCS: 82274 ==

== ENCOUNTER → 2025-03-10 11:26 | Outpatient (CLI) | payer MEDICARE, OTHER, SELFPAY ==
[2025-03-10 20:40] LABS: TSH w/ Reflex to FT4 0.43 uIU/mL (0.47-4.68)
[2025-03-10 21:19] LABS: Free T4, Direct Thyroxine 1.45 ng/dL (0.78-2.19)
== END ==
PROVIDERS: PCP Family Medicine; Visit Provider Family Medicine
DX: E03.9 Hypothyroidism, unspecified (principal)
CPT/HCPCS: 84439; 84443

== ENCOUNTER → 2025-04-29 13:48 | Outpatient (CLI) | payer MEDICARE, OTHER, SELFPAY ==
[2025-04-29 19:28] LABS: TSH w/ Reflex to FT4 1.31 uIU/mL (0.47-4.68)
== END ==
PROVIDERS: PCP Family Medicine; Visit Provider Family Medicine
DX: E89.0 Postprocedural hypothyroidism (principal)
CPT/HCPCS: 84443

== ENCOUNTER → 2025-05-19 10:25 | Outpatient (CLI) | payer MEDICARE, OTHER, SELFPAY ==
[2025-05-19 18:53] LABS: Add Manual Diff / Slide Review NO; Hematocrit 48.8 % (41-53); Hemoglobin 16.5 g/dL (13.5-17.5); Lymphocytes Absolute Auto 1400 /uL (1100-4500); Mean Corpuscular HGB Conc 33.8 % (30-36); Mean Corpuscular Hemoglobin 30.1 PG (26-34); Mean Corpuscular Volume 89.0 fL (80-100); Platelet Count 233 X10^3/uL (150-400)
[2025-05-19 19:08] LABS: Blood Urea Nitrogen 13 mg/dL (9-20); Calcium 9.4 mg/dL (8.4-10.2); Carbon Dioxide 30 mmol/L (22-32); Chloride 99 mmol/L (98-107); Cholesterol 133 mg/dL (140-199); Estimated Glomerular Filt Rate > 60 mL/min (>60); Glucose 91 mg/dL (70-99); HDL Cholesterol 53 mg/dL (40-60); HEMOLYSIS 23 (0-50); Potassium 4.7 mmol/L (3.4-5.1); Sodium 137 mmol/L (137-145); Triglycerides 87 mg/dL (35-150)
[2025-05-19 19:58] LABS: Vitamin B12 889 pg/mL (239-931)
== END ==
PROVIDERS: PCP Family Medicine; Visit Provider Family Medicine
DX: E53.8 Deficiency of other specified B group vitamins (principal); E89.0 Postprocedural hypothyroidism; Z12.5 Encounter for screening for malignant neoplasm of prostate; E78.2 Mixed hyperlipidemia; R25.1 Tremor, unspecified; N40.0 Benign prostatic hyperplasia without lower urinary tract symptoms
CPT/HCPCS: 80048; 80061; 82607; 85025; G0103